=== PATIENT | male | born 1995 | race Caucasian/White ===

== ENCOUNTER 2017-07-25 08:22 | Emergency (ER) | payer MEDICAID ==
[~2017-07-25] VITALS: Ht 177.8 cm; Wt 83.0 kg
[~2017-07-25 08:22] MED LIST: NOR10T PO
[2017-07-25 08:28] VITALS: Ht 177.8 cm; Wt 83.0 kg
[2017-07-25 09:13] VITALS: BP 125/70
== END 2017-07-25 09:13 | disposition home or self-care (01) ==
LOC: ED 08:22
DX: S39.012A Strain of muscle, fascia and tendon of lower back, initial encounter (principal); Z90.5 Acquired absence of kidney; Z98.890 Other specified postprocedural states; X50.0XXA Overexertion from strenuous movement or load, initial encounter; Y93.89 Activity, other specified; Y99.8 Other external cause status; Y92.89 Other specified places as the place of occurrence of the external cause
CPT/HCPCS: J1885

== ENCOUNTER 2019-09-30 11:01 | Emergency (ER) | payer SELFPAY ==
[~2019-09-30] VITALS: Ht 180.3 cm; Wt 76.7 kg
[2019-09-30 11:15] VITALS: BP 131/77; Ht 180.3 cm; Wt 76.7 kg
== END 2019-09-30 13:52 | disposition home or self-care (01) ==
LOC: ED 11:01
DX: S62.326A Displaced fracture of shaft of fifth metacarpal bone, right hand, initial encounter for closed fracture (principal); W18.39XA Other fall on same level, initial encounter; Y93.89 Activity, other specified; Y92.89 Other specified places as the place of occurrence of the external cause; Y99.8 Other external cause status
CPT/HCPCS: J2001; Q0092